=== PATIENT | female | born 1955 | race Hispanic/Latino ===

== ENCOUNTER 2019-10-18 19:12 | Emergency (ER) | payer MEDICAID ==
--- NOTE | 2019-10-18 20:01 | Emergency Department Report ---
HPI <NICOLAS BROUSSARD - Last Filed: 10/20/19 12:11> - HPI HPI: [place] 11 The patient is a 63-year-old female present with a chief complaint of aggressive behavior. The patient was reportedly at a personal senior care and called police because staff was not giving her her medication. Police states patient became aggressive with a roommate and was detained by police. The patient has a history of schizophrenia and bipolar disorder <ARYAN MORTENSEN Andressa - Last Filed: 10/20/19 21:59> - General Chief Complaint: Psych Time Seen by Provider: 10/18/19 19:42 ED Past Medical Hx <NICOLAS BROUSSARD - Last Filed: 10/20/19 12:11> - Past Medical History Previous Medical History?: Yes Hx Hypertension: Yes Hx Diabetes: Yes Hx Psychiatric Treatment: Yes (Bipolar, Schizophrenia) Additional medical history: DJD, needs hip replacement - Surgical History Past Surgical History?: No - Family History Family history: no significant - Social History Smoking Status: Current Every Day Smoker Substance Use Type: None <ARYAN MORTENSEN - Last Filed: 10/20/19 21:59> - Medications Home Medications: Home Medications Medication Instructions Recorded Confirmed Last Taken Type Acetaminophen [Tylenol] 650 mg PO Q6H PRN 10/19/19 10/19/19 Unknown History Cyclobenzaprine [Flexeril] 10 mg PO TID PRN 10/19/19 10/19/19 Unknown History DULoxetine [Cymbalta] 30 mg PO QDAY 10/19/19 10/19/19 Unknown History OLANZapine [Zyprexa] 7.5 mg PO BID 10/19/19 10/19/19 Unknown History Pregabalin [Lyrica] 50 mg PO TID 10/19/19 10/19/19 Unknown History Sennosides [Senna] 8.6 mg PO QDAY PRN 10/19/19 10/19/19 Unknown History Tramadol HCl/Acetaminophen 1 each PO Q6H PRN 10/19/19 10/19/19 Unknown History [Ultracet Tablet] amLODIPine [Norvasc] 10 mg PO DAILY 10/19/19 10/19/19 Unknown History metFORMIN [Glucophage] 500 mg PO BID 10/19/19 10/19/19 Unknown History ED Review of Systems ROS: Stated complaint: PSYCHIATRIC OUT BREAK Other details as noted in HPI <NICOLAS BROUSSARD Last Filed: 10/20/19 12:11> ROS: Stated complaint: PSYCHIATRIC OUT BREAK Other details as noted in HPI Constitutional: no symptoms reported Respiratory: no symptoms reported Endocrine: no symptoms reported Psychiatric: other (Aggressive behavior) <ÁNGEL MORTENSENMOKE Andressa - Last Filed: 10/20/19 21:59> Physical Exam - Physical Exam Vital Signs: Vital Signs 10/18/19 10/19/19 10/19/19 20:00 03:00 09:42 Temperature 97.9 F 97.9 F 97.8 F Pulse Rate 110 H 90 104 H Respiratory 20 20 16 Rate Blood Pressure 170/79 131/80 131/86 [Left] O2 Sat by Pulse 97 95 Oximetry 10/19/19 10/20/19 10/20/19 20:00 01:00 01:44 Temperature 98.0 F 97.6 F Pulse Rate 101 H 76 Respiratory 18 18 20 Rate Blood Pressure 148/79 136/78 [Left] O2 Sat by Pulse 96 98 Oximetry 10/20/19 08:03 Temperature 98.6 F Pulse Rate 113 H Respiratory 18 Rate Blood Pressure 149/84 [Left] O2 Sat by Pulse Oximetry <NICOLAS BROUSSARD Last Filed: 10/20/19 12:11> - Physical Exam Physical Exam: GENERAL: The patient is well-developed well-nourished female sitting in chair eating food not appearing to be in acute distress. [] HEENT: Normocephalic. Atraumatic. Extraocular motions are intact. Patient has moist mucous membranes. NECK: Supple. Trachea midline CHEST/LUNGS: There is no respiratory distress noted. HEART/CARDIOVASCULAR: Regular. There is no tachycardia. There is no gallop rub or murmur. ABDOMEN: Abdomen is soft, nontender. Patient has normal bowel sounds. There is no abdominal distention. SKIN: There is no rash. There is no edema. There is no diaphoresis. NEURO: The patient is awake, alert, and oriented. The patient is initially cooperative but during interview the patient states she does not wish to talk to me any longer. The patient has no focal neurologic deficits. The patient has normal speech MUSCULOSKELETAL: There is no evidence of acute injury. <ARYAN MORTENSEN Andressa - Last Filed: 10/20/19 21:59> ED Course Vital Signs 10/18/19 10/19/19 10/19/19 20:00 03:00 09:42 Temperature 97.9 F 97.9 F 97.8 F Pulse Rate 110 H 90 104 H Respiratory 20 20 16 Rate Blood Pressure 170/79 131/80 131/86 [Left] O2 Sat by Pulse 97 95 Oximetry 10/19/19 10/20/19 10/20/19 20:00 01:00 01:44 Temperature 98.0 F 97.6 F Pulse Rate 101 H 76 Respiratory 18 18 20 Rate Blood Pressure 148/79 136/78 [Left] O2 Sat by Pulse 96 98 Oximetry 10/20/19 08:03 Temperature 98.6 F Pulse Rate 113 H Respiratory 18 Rate Blood Pressure 149/84 [Left] O2 Sat by Pulse Oximetry - Reevaluation(s) Reevaluation #1: 10/20/19 12:06 The psychiatric team has recommended a 1013. I have ordered this on [facility]. it was already filled out by Dr Isaac Mortensen The patient is verbally aggressive, and has not responded to de-escalation techniques, or initial medications. As needed Ativan is ordered. [id number] evaluation performed. Patient is poorly mobile, and sitting in her room/stret [place]. She is moving her upper extremities and breathing spontaneously and protecting her airway. 10/20/19 12:11 <NICOLAS BROUSSARD - Last Filed: 10/20/19 12:11> ED Medical Decision Making - Lab Data Result diagrams: 10/18/19 19:57 10/18/19 19:57 <NICOLAS BROUSSARD - Last Filed: 10/20/19 12:11> - Lab Data Result diagrams: 10/20/19 15:31 10/18/19 19:57 - Differential Diagnosis Aggressive behavior <ARYAN MORTENSEN - Last Filed: 10/20/19 21:59> Critical care attestation.: If time is entered above; I have spent that time in minutes in the direct care of this critically ill patient, excluding procedure time. <NICOLAS BROUSSARD - Last Filed: 10/20/19 12:11> Critical care attestation.: If time is entered above; I have spent that time in minutes in the direct care of this critically ill patient, excluding procedure time. <ARYAN MORTENSEN - Last Filed: 10/20/19 21:59> ED Disposition <NICOLAS BROUSSARD - Last Filed: 10/20/19 12:11> Is pt being admited?: No Does the pt Need Aspirin: No <ARYAN MORTENSEN - Last Filed: 10/20/19 21:59> Clinical Impression: Aggressive behavior, UTI (urinary tract infection) Disposition: DC/[facility] HOSP/PSY UNIT Condition: Stable Referrals: PRIMARY CARE, [Primary Care Provider] - 3-5 Days
[2019-10-18 20:24] LABS: Basophils % (Auto) 0.2 % (0.0-1.8); Eosinophils # (Auto) 0.3 K/mm3 (0.0-0.4); Eosinophils % (Auto) 2.5 % (0.0-4.3); Hematocrit 37.7 % (30.3-42.9); Hemoglobin 12.3 gm/dl (10.1-14.3); Lymphocytes # (Auto) 3.2 K/mm3 (1.2-5.4); Lymphocytes % (Auto) 28.3 % (13.4-35.0); Mean Corpuscular HGB Conc 33 % (30-34); Mean Corpuscular Volume 79 fl (79-97); Monocytes % (Auto) 8.9 % (0.0-7.3); Platelet Count 422 K/mm3 (140-440); Red Blood Count 4.78 M/mm3 (3.65-5.03); Red Cell Distribution Width 15.3 % (13.2-15.2)
[2019-10-18] MEDS: HALOPERIDOL LACTATE 5 MG/1 ML INJ IM PRN (20:43)
[2019-10-18] MEDS: diphenhydrAMINE 50 MG/ML VIAL IM PRN (20:44)
[2019-10-18 20:46] LABS: Alanine Aminotransferase 49 units/L (7-56); Albumin 4.2 g/dL (3.9-5); Blood Urea Nitrogen 16 mg/dL (7-17); Calcium 10.2 mg/dL (8.4-10.2); Hemolysis Index 11
[2019-10-18 20:49] LABS: BUN/Creatinine Ratio 27
[2019-10-19 01:05] LABS: Bacteria,Urine 1+ /HPF (Negative); Bilirubin,Urine NEG (Negative); Blood,Urine SM (Negative); Color,Urine Yellow (Yellow); Mucus,Urine FEW /HPF; Protein,Urine <15 mg/dL mg/dL (Negative); Urobilinogen,Urine < 2.0 mg/dL (<2.0)
[2019-10-19 01:13] LABS: Amphetamine Screen,Urine PRESUMPTIVE NEGATIVE; Benzodiazepines Screen,Urine PRESUMPTIVE NEGATIVE; Cannabinoid Screen,Urine PRESUMPTIVE NEGATIVE; Cocaine Screen,Urine PRESUMPTIVE NEGATIVE; Methadone Screen,Urine PRESUMPTIVE NEGATIVE; Opiate Screen,Urine PRESUMPTIVE NEGATIVE
[2019-10-19] MEDS: diphenhydrAMINE 50 MG/ML VIAL IM PRN ×2 (08:06→16:15)
[2019-10-19] MEDS: HALOPERIDOL LACTATE 5 MG/1 ML INJ IM PRN ×2 (08:06→16:15)
[2019-10-19] MEDS: levoFLOXacin 500 MG TAB PO SCH (11:00)
[2019-10-19] MEDS: amLODIPine 10 MG TAB PO SCH (14:00)
[2019-10-19] MEDS: metFORMIN 500 MG TAB PO SCH (23:43)
[2019-10-20] MEDS ORDERED: ALUM-MAG HYDROXIDE-SIMETHICONE 200-200-20MG/5ML ORAL LIQD 30 ML PO PRN (08:06)
[2019-10-20] MEDS ORDERED: MAGNESIUM HYDROXIDE (MOM) ORAL LIQD UDC PO PRN (08:06)
[2019-10-20] MEDS: HALOPERIDOL LACTATE 5 MG/1 ML INJ IM PRN ×2 (08:37→16:29)
[2019-10-20] MEDS: ACETAMINOPHEN 325 MG TAB PO PRN (08:37)
[2019-10-20] MEDS: amLODIPine 10 MG TAB PO SCH (09:41)
[2019-10-20] MEDS: metFORMIN 500 MG TAB PO SCH ×2 (09:41→22:34)
[2019-10-20] MEDS: DULoxetine 30 MG CAP PO SCH (09:41)
[2019-10-20] MEDS: levoFLOXacin 500 MG TAB PO SCH (09:41)
[2019-10-20] MEDS: LORazepam 2 MG/ML VIAL IM PRN ×2 (12:28→16:14)
--- NOTE | 2019-10-20 13:38 | Consultation ---
History of Present Illness - Reason for Consult Consult date: 10/20/19 Reason for consult: aggression - History of Present Psychiatric Illness Roseline Vasquez is a 63y/o female patient for aggressive behavior. During my interview with the patient, she was heard yelling out of her room into the hallway. The patient is a/o x 3. She is obviously upset and appears anxious. The patient states "of course I'm angry, I got bone on bone, arthritis, a debilitated hip." She then says, "and nobody's doing nothing about it." The patient says, "I'm just in so much pain." She says she has a history of "bipolar and depression." The patient denies SI/HI or having a history of. She says she has been admitted for psych related conditions "several times." The patient says her "psych history goes back to 1974." She says she's "been on several meds since then, including zyprexa, haldol, cymbalta, lyrica and klonopin." The patient denies hallucinations and states, "no, I don't and never have hallucinated." She denies alcohol or illicit drug use. She says she smokes cigarets a "half a pack a day." PAST PSYCHIATRIC HISTORY: Diagnoses: Bipolar and depression Suicide attempts or Self-harm behavior: Denies Prior psychiatric hospitalizations: "several times" Substance Abuse history: Nicotine Previous psychiatric medications tried: zyprexa, haldol, cymbalta, klonopin, lyrica Outpatient treatment: Yes PAST MEDICAL HISTORY: None reported Family Psychiatric History: None reported or documented SOCIAL HISTORY Marital Status: Living Arrangements: [facility] Employment Status: Disabled Access to guns/weapons: Denies Education: 10th grade History of Abuse: Denies Legal History: Denies REVIEW OF SYSTEMS Constitutional: Negative for weight loss ENT: Negative for stridor Respiratory: Negative for cough or hemoptysis All other systems reviewed and are negative MENTAL STATUS EXAMINATION General Appearance: Dressed appropriately Behavior: Upset, anxious Mood: "angry" Affect and affective range: Angry Thought Process: Goal directed Speech: increased rate and tone, yelling at times Thought Content: Suicidal Ideation: Denies SI Homicidal Ideation: Denies Hallucinations: Denies Delusions: Denies Insight and Judgment: Limited Memory/Cognition: Limited Attention: Normal ASSESSMENT Bipolar Disorder, Current Episode Manic RECOMMENDATIONS Increase home olanzapine to 10mg po BID Start Depakote DR 125mg po BID Start Klonopin 0.25mg po BID Start Trazodone 50mg po qhs Sitter: Defer to primary Medical: per primary Disposition: Recommend acute inpatient psychiatric treatment once medically clear Will continue to follow Thank you for this consult. Please call with any questions or concerns. Medications and Allergies Allergies Allergy/AdvReac Type Severity Reaction Status Date / Time Penicillins Allergy Unknown Verified 10/18/19 20:18 Home Medications Medication Instructions Recorded Confirmed Last Taken Type Acetaminophen [Tylenol] 650 mg PO Q6H PRN 10/19/19 10/19/19 Unknown History Cyclobenzaprine [Flexeril] 10 mg PO TID PRN 10/19/19 10/19/19 Unknown History DULoxetine [Cymbalta] 30 mg PO QDAY 10/19/19 10/19/19 Unknown History OLANZapine [Zyprexa] 7.5 mg PO BID 10/19/19 10/19/19 Unknown History Pregabalin [Lyrica] 50 mg PO TID 10/19/19 10/19/19 Unknown History Sennosides [Senna] 8.6 mg PO QDAY PRN 10/19/19 10/19/19 Unknown History Tramadol HCl/Acetaminophen 1 each PO Q6H PRN 10/19/19 10/19/19 Unknown History [Ultracet Tablet] amLODIPine [Norvasc] 10 mg PO DAILY 10/19/19 10/19/19 Unknown History metFORMIN [Glucophage] 500 mg PO BID 10/19/19 10/19/19 Unknown History Active Meds: Active Medications Acetaminophen (Tylenol) 650 mg PO Q4HR PRN PRN Reason: Pain MILD(1-3)/Fever >100.5/PANDA Last Admin: 10/20/19 08:37 Dose: 650 mg Documented by: Al Hydrox/Mg Hydrox/Simethicone (Alum-Mag Hydrox-Simeth [phone]/5ml) 30 ml PO Q4HR PRN PRN Reason: Indigestion Amlodipine Besylate (Amlodipine) 10 mg PO DAILY ABRAHAM Last Admin: 10/20/19 09:41 Dose: 10 mg Documented by: Diphenhydramine HCl (Benadryl) 50 mg IM Q6H PRN PRN Reason: Agitation Last Admin: 10/19/19 16:15 Dose: 50 mg Documented by: Duloxetine HCl (Cymbalta) 30 mg PO QDAY [facility] Last Admin: 10/20/19 09:41 Dose: 30 mg Documented by: Haloperidol Lactate (Haldol) 10 mg IM Q8H PRN PRN Reason: Agitation Last Admin: 10/20/19 08:37 Dose: 10 mg Documented by: Levofloxacin (Levaquin) 500 mg PO QDAY [facility] Stop: 10/22/19 10:00 Last Admin: 10/20/19 09:41 Dose: 500 mg Documented by: Lorazepam (Ativan) 2 mg IM Q4HR PRN PRN Reason: Agitation Last Admin: 10/20/19 12:28 Dose: 2 mg Documented by: Magnesium Hydroxide (Milk Of Magnesia) 30 ml PO Q12HR PRN PRN Reason: Constipation Metformin HCl (Glucophage) 500 mg PO BID [facility] Last Admin: 10/20/19 09:41 Dose: 500 mg Documented by: Olanzapine (Zyprexa) 7.5 mg PO BID [facility] Last Admin: 10/20/19 09:41 Dose: 7.5 mg Documented by: Mental Status Exam - Vital signs Last Vital Signs Temp 98.6 F 10/20/19 08:03 Pulse 113 H 10/20/19 08:03 Resp 18 10/20/19 08:03 BP 149/84 10/20/19 08:03 Pulse Ox 98 10/20/19 01:44 Results Result Diagrams: 10/18/19 19:57 10/18/19 19:57 Abnormal lab results 10/20/19 Range/Units 07:58 POC Glucose 181 H (70-105) All other labs normal.
[2019-10-20] MEDS: DIVALPROEX DR 125 MG TAB PO SCH ×2 (14:49→22:35)
[2019-10-20] MEDS: clonazePAM 0.5 MG TAB PO SCH ×2 (14:49→22:34)
[2019-10-20 15:58] LABS: Hematocrit 41.2 % (30.3-42.9); Hemoglobin 13.3 gm/dl (10.1-14.3); Mean Corpuscular HGB Conc 32 % (30-34); Mean Corpuscular Volume 79 fl (79-97); Platelet Count 433 K/mm3 (140-440); Red Blood Count 5.25 M/mm3 (3.65-5.03); Red Cell Distribution Width 15.5 % (13.2-15.2)
[2019-10-20] MEDS: traZODone 50 MG TAB PO SCH (22:35)
[2019-10-21] MEDS: HALOPERIDOL LACTATE 5 MG/1 ML INJ IM PRN ×2 (02:30→14:00)
[2019-10-21] MEDS: diphenhydrAMINE 50 MG/ML VIAL IM PRN ×2 (02:30→14:00)
[2019-10-21] MEDS: clonazePAM 0.5 MG TAB PO SCH ×2 (10:47→21:41)
[2019-10-21] MEDS: DULoxetine 30 MG CAP PO SCH (10:48)
[2019-10-21] MEDS: levoFLOXacin 500 MG TAB PO SCH (10:48)
[2019-10-21] MEDS: amLODIPine 10 MG TAB PO SCH (10:48)
[2019-10-21] MEDS: DIVALPROEX DR 125 MG TAB PO SCH (10:48)
[2019-10-21] MEDS: metFORMIN 500 MG TAB PO SCH ×2 (10:48→21:40)
--- NOTE | 2019-10-21 11:34 | Progress Note ---
Subjective - Reason for Consult Consult date: 10/21/19 Reason for consult: agitation, aggression - Chief Complaint Chief complaint: The patient's medical record was reviewed and the patient's progress was discussed with the nursing staff. The nurse note states the patient hollering and screaming out beating her hand on the wall by her bed. Reoriented to environment and patient screaming that were not giving her medications right and that she needs Percocet and Vicodin for her pain. During my interview with the patient today, she is lying down, awake. She is a/o x 3. She is irritable and agitated. Her face is tense and scrunched up. She is heard yelling from the hallway. She is c/o of "pelvic pain that goes to my back." The patient also verbalizes being "very anxious and upset" and states she "needs my klonopin." She denies hallucinations and SI/HI. REVIEW OF SYSTEMS Constitutional: Negative for weight loss ENT: Negative for stridor Respiratory: Negative for cough or hemoptysis All other systems reviewed and are negative MENTAL STATUS EXAMINATION General Appearance: Dressed appropriately Behavior: agitated, anxious, yelling Mood: "anxious and upset" Affect and affective range: tense, angry Thought Process: Goal directed Speech: increased rate and tone, yelling at times Thought Content: Suicidal Ideation: Denies SI Homicidal Ideation: Denies Hallucinations: Denies Delusions: Denies Insight and Judgment: Limited Memory/Cognition: Limited Attention: Normal ASSESSMENT Bipolar Disorder, Current Episode Manic RECOMMENDATIONS Increased Depakote DR 250mg po BID Increased Klonopin 0.5mg po BID Sitter: Defer to primary Medical: per primary Disposition: Recommend acute inpatient psychiatric treatment once medically clear Will continue to follow Thank you for this consult. Please call with any questions or concerns. Mental Status Exam - Vital signs Last Vital Signs Temp 98.6 F 10/21/19 02:05 Pulse 96 H 10/21/19 02:05 Resp 10/21/19 02:05 BP 148/81 10/21/19 02:05 Pulse Ox 100 10/21/19 02:05
[2019-10-21] MEDS: LORazepam 2 MG/ML VIAL IM PRN (14:30)
[2019-10-21] MEDS: ACETAMINOPHEN 325 MG TAB PO PRN (18:34)
[2019-10-21] MEDS: DIVALPROEX DR 250 MG TAB PO SCH (21:40)
[2019-10-21] MEDS: traZODone 50 MG TAB PO SCH (21:40)
[2019-10-22] MEDS: HALOPERIDOL LACTATE 5 MG/1 ML INJ IM PRN ×3 (02:11→18:27)
[2019-10-22] MEDS: LORazepam 2 MG/ML VIAL IM PRN ×3 (02:11→18:27)
[2019-10-22] MEDS: diphenhydrAMINE 50 MG/ML VIAL IM PRN ×3 (02:11→18:27)
[2019-10-22] MEDS: ACETAMINOPHEN 325 MG TAB PO PRN ×2 (07:20→15:19)
[2019-10-22] MEDS: metFORMIN 500 MG TAB PO SCH ×2 (10:07→21:48)
[2019-10-22] MEDS: DIVALPROEX DR 250 MG TAB PO SCH ×2 (10:07→21:47)
[2019-10-22] MEDS: amLODIPine 10 MG TAB PO SCH (10:07)
[2019-10-22] MEDS: levoFLOXacin 500 MG TAB PO SCH (10:07)
[2019-10-22] MEDS: clonazePAM 0.5 MG TAB PO SCH ×2 (10:07→21:48)
[2019-10-22] MEDS: DULoxetine 30 MG CAP PO SCH (10:07)
--- NOTE | 2019-10-22 11:20 | Progress Note ---
Subjective - Reason for Consult Consult date: 10/22/19 Reason for consult: agitation, irritability - Chief Complaint Chief complaint: The patient's medical record was reviewed and the patient's progress was discussed with the nursing staff. The nurse caring for the patient today, states the patient has been screaming and yelling all morning. During my interview with the patient today, she is lying down. She is resting quietly. The patient easily arouses. She is oriented x 3. She makes good eye contact. She is irritable and easily agitated. The patient states to me "I'm not good. I'm hurting badly." She says "that's my problem with laying here like this." The patient asked, "am I going back home?" When advising the patient that she had been too agitated. She replied "I'm not a mean person. I just got a hot temper. Me just laying here makes it worse." Informed the patient that she had to be calm and stop being so aggressive. The patient then states, "oh, okay. I can do that. I'll be calm." She denies SI/HI or hallucinations of any kind. REVIEW OF SYSTEMS Constitutional: Negative for weight loss ENT: Negative for stridor Respiratory: Negative for cough or hemoptysis All other systems reviewed and are negative MENTAL STATUS EXAMINATION General Appearance: Dressed appropriately Behavior: irritable, agitated cooperative Mood: "not good" Affect and affective range: tense Thought Process: Goal directed Speech: increased rate and tone Thought Content: Suicidal Ideation: Denies SI Homicidal Ideation: Denies Hallucinations: Denies Delusions: Denies Insight and Judgment: Limited Memory/Cognition: Limited Attention: Normal ASSESSMENT Bipolar Disorder, Current Episode Manic RECOMMENDATIONS Increased Klonopin 1mg po BID Sitter: Defer to primary Medical: per primary Disposition: Recommend acute inpatient psychiatric treatment once medically clear Will continue to follow Thank you for this consult. Please call with any questions or concerns. Mental Status Exam - Vital signs Last Vital Signs Temp 97.6 F 10/22/19 08:26 Pulse 106 H 10/22/19 08:26 Resp 18 10/22/19 08:26 BP 117/78 10/22/19 08:26 Pulse Ox 99 10/22/19 02:05
[2019-10-22] MEDS: traMADol 50 MG TAB PO SCH (16:16)
[2019-10-22] MEDS: traZODone 50 MG TAB PO SCH (21:48)
[2019-10-23] MEDS: ACETAMINOPHEN 325 MG TAB PO PRN ×2 (05:08→18:39)
[2019-10-23] MEDS ORDERED: traMADol 50 MG TAB PO ONE (06:24)
--- NOTE | 2019-10-23 10:23 | Progress Note ---
Subjective - Reason for Consult Consult date: 10/23/19 Reason for consult: Aggression, agitation - Chief Complaint Chief complaint: The patient's medical record was reviewed and the patient's progress was discussed with the nursing staff. The nurse caring for the patient today, Received pt in the room, yelling and screaming for a remote and asking for a milk, gave pt what she needs and asked if she can just tell what she wants without yelling or screaming. The nurse note also states the patient continues to call staffs name and yell into the [place]. The patient is hitting the wall and spitting on the floor. During my interview with the patient today, she is lying down. Awake. She is a/o x 3. The patient appears irritated, but she calms down as we continue to talk. Her face is tense. She states, "I am not good and yall need to let me out of here." The patient tells me she "can pay a cab with the $20 she has." She says she's "in a lot of pain and that's what makes me agitated like I am." She states she's "ready to go back to her personal custodial with my sweet little roommate." Advised the patient that she first had to calm down and stop being so easily agitated. She laughed and stated, "well when is that going to happen." The patient denies hallucinations of any kind. She also denies SI/HI REVIEW OF SYSTEMS Constitutional: Negative for weight loss ENT: Negative for stridor Respiratory: Negative for cough or hemoptysis All other systems reviewed and are negative MENTAL STATUS EXAMINATION General Appearance: Dressed appropriately Behavior: irritable, easily agitated, cooperative Mood: "not good" Affect and affective range: tense Thought Process: Goal directed Speech: increased rate and tone Thought Content: Suicidal Ideation: Denies SI Homicidal Ideation: Denies Hallucinations: Denies Delusions: Denies Insight and Judgment: Limited Memory/Cognition: Limited Attention: Normal ASSESSMENT Bipolar Disorder, Current Episode Manic RECOMMENDATIONS Increased Depakote DR 500mg po BID Sitter: Defer to primary Medical: per primary Disposition: Recommend acute inpatient psychiatric treatment once medically cl ear Will continue to follow Thank you for this consult. Please call with any questions or concerns. Mental Status Exam - Vital signs Last Vital Signs Temp 98.2 F 10/23/19 10:07 Pulse 99 H 10/23/19 10:07 Resp 20 10/23/19 10:07 BP 151/84 10/23/19 10:07 Pulse Ox 95 10/23/19 04:01
[2019-10-23] MEDS ORDERED: IBUPROFEN 600 MG TAB PO ONE (10:46)
[2019-10-23] MEDS: clonazePAM 0.5 MG TAB PO SCH ×2 (10:47→22:55)
[2019-10-23] MEDS: DULoxetine 30 MG CAP PO SCH (10:47)
[2019-10-23] MEDS: metFORMIN 500 MG TAB PO SCH ×2 (10:48→22:55)
[2019-10-23] MEDS: amLODIPine 10 MG TAB PO SCH (10:49)
[2019-10-23] MEDS: DIVALPROEX DR 250 MG TAB PO SCH (10:52)
[2019-10-23] MEDS ORDERED: IBUPROFEN 800 MG TAB PO ONE (10:53)
[2019-10-23] MEDS: diphenhydrAMINE 50 MG/ML VIAL IM PRN (17:40)
[2019-10-23] MEDS: HALOPERIDOL LACTATE 5 MG/1 ML INJ IM PRN (17:41)
[2019-10-23] MEDS: traZODone 50 MG TAB PO SCH (22:50)
[2019-10-23] MEDS: DIVALPROEX DR 500 MG TAB PO SCH (22:55)
[2019-10-24] MEDS: LORazepam 2 MG/ML VIAL IM PRN ×2 (08:24→17:07)
[2019-10-24] MEDS: HALOPERIDOL LACTATE 5 MG/1 ML INJ IM PRN ×2 (08:25→17:09)
[2019-10-24] MEDS: DULoxetine 30 MG CAP PO SCH (10:21)
[2019-10-24] MEDS: amLODIPine 10 MG TAB PO SCH (10:21)
[2019-10-24] MEDS: DIVALPROEX DR 500 MG TAB PO SCH ×2 (10:22→22:41)
[2019-10-24] MEDS: clonazePAM 0.5 MG TAB PO SCH ×2 (10:22→22:42)
[2019-10-24] MEDS: metFORMIN 500 MG TAB PO SCH ×2 (10:22→22:42)
--- NOTE | 2019-10-24 13:46 | Progress Note ---
Subjective - Reason for Consult Consult date: 10/24/19 Reason for consult: MHE Requesting physician: ARYAN JANE - Chief Complaint Chief complaint: Psych Progress Patient seen today in room, somnolence but alert to loud verbal stimuli. Was recently medicated due to agitation. Patient states she knows where she is, complains of generalized aches and wants pain medicine stronger than tylenol. REVIEW OF SYSTEMS Constitutional: Negative for weight loss ENT: Negative for stridor Respiratory: Negative for cough or hemoptysis All other systems reviewed and are negative MENTAL STATUS EXAMINATION General Appearance: Dressed appropriately Behavior: irritable, easily agitated, cooperative Mood: "not good" Affect and affective range: tense Thought Process: Goal directed Speech: increased rate and tone Thought Content: Suicidal Ideation: Denies SI Homicidal Ideation: Denies Hallucinations: Denies Delusions: Denies Insight and Judgment: Limited Memory/Cognition: Limited Attention: Normal ASSESSMENT Bipolar Disorder, Current Episode Manic RECOMMENDATIONS Increased Depakote DR 500mg po BID Sitter: Defer to primary Medical: per primary Disposition: Recommend acute inpatient psychiatric treatment once medically clear Will continue to follow Thank you for this consult. Please call with any questions or concerns. Mental Status Exam - Vital signs Last Vital Signs Temp 97.6 F 10/24/19 08:00 Pulse 88 10/24/19 10:21 Resp 22 10/24/19 08:00 BP 142/100 10/24/19 10:21 Pulse Ox 95 10/24/19 08:00
[2019-10-24] MEDS: traMADol 50 MG TAB PO SCH (17:08)
[2019-10-24] MEDS: ACETAMINOPHEN 325 MG TAB PO PRN (17:08)
[2019-10-24] MEDS: diphenhydrAMINE 50 MG/ML VIAL IM PRN (17:09)
[2019-10-24] MEDS: traZODone 50 MG TAB PO SCH (22:41)
[2019-10-25] MEDS: LORazepam 2 MG/ML VIAL IM PRN (04:41)
[2019-10-25] MEDS: diphenhydrAMINE 50 MG/ML VIAL IM PRN (04:42)
[2019-10-25] MEDS: HALOPERIDOL LACTATE 5 MG/1 ML INJ IM PRN ×2 (04:43→13:37)
[2019-10-25] MEDS ORDERED: ZIPRASIDONE MESYLATE 20 MG VIAL IM ONE ×2 (05:45→05:51)
[2019-10-25] MEDS ORDERED: WATER FOR INJ Sterile (PF) 10 ML ONE (05:51)
--- NOTE | 2019-10-25 11:49 | Progress Note ---
Subjective - Reason for Consult Consult date: 10/25/19 Reason for consult: MHE Requesting physician: ARYAN JANE - Chief Complaint Chief complaint: Psych Progress Patient seen today in room, loud, talkative and increased impulsiveness and seeking attention REVIEW OF SYSTEMS Constitutional: Negative for weight loss ENT: Negative for stridor Respiratory: Negative for cough or hemoptysis All other systems reviewed and are negative MENTAL STATUS EXAMINATION General Appearance: Dressed appropriately Behavior: irritable, easily agitated, cooperative Mood: "not good" Affect and affective range: tense Thought Process: Goal directed Speech: increased rate and tone Thought Content: Suicidal Ideation: Denies SI Homicidal Ideation: Denies Hallucinations: Denies Delusions: Denies Insight and Judgment: Limited Memory/Cognition: Limited Attention: Normal ASSESSMENT Bipolar Disorder, Current Episode Manic RECOMMENDATIONS Increased Depakote DR 500mg po BID Sitter: Defer to primary Medical: per primary Disposition: Recommend acute inpatient psychiatric treatment once medically clear Will continue to follow Thank you for this consult. Please call with any questions or concerns. Mental Status Exam - Vital signs Last Vital Signs Temp 97.6 F 10/25/19 08:38 Pulse 90 10/25/19 08:38 Resp 18 10/25/19 08:38 BP 168/88 10/25/19 08:38 Pulse Ox 100 10/25/19 08:38
[2019-10-25] MEDS: DIVALPROEX DR 500 MG TAB PO SCH ×2 (11:50→22:49)
[2019-10-25] MEDS: DULoxetine 30 MG CAP PO SCH (11:51)
[2019-10-25] MEDS: amLODIPine 10 MG TAB PO SCH (11:51)
[2019-10-25] MEDS: metFORMIN 500 MG TAB PO SCH ×2 (11:52→22:50)
[2019-10-25] MEDS: clonazePAM 0.5 MG TAB PO SCH ×2 (11:55→22:49)
[2019-10-25] MEDS: traZODone 50 MG TAB PO SCH (22:49)
[2019-10-26] MEDS: traMADol 50 MG TAB PO SCH ×2 (02:59→19:49)
[2019-10-26] MEDS: ACETAMINOPHEN 325 MG TAB PO PRN (08:00)
[2019-10-26] MEDS: HALOPERIDOL LACTATE 5 MG/1 ML INJ IM PRN ×2 (10:25→20:19)
[2019-10-26] MEDS: clonazePAM 0.5 MG TAB PO SCH (10:59)
[2019-10-26] MEDS: DULoxetine 30 MG CAP PO SCH (10:59)
[2019-10-26] MEDS: amLODIPine 10 MG TAB PO SCH (11:00)
[2019-10-26] MEDS: DIVALPROEX DR 500 MG TAB PO SCH ×2 (11:00→22:11)
[2019-10-26] MEDS: metFORMIN 500 MG TAB PO SCH ×2 (11:00→22:10)
--- NOTE | 2019-10-26 12:16 | Progress Note ---
Subjective - Reason for Consult Consult date: 10/26/19 Reason for consult: MHE Requesting physician: JUDITH BREWER - Chief Complaint Chief complaint: Psych Progress Patient seen today in room, says she is having pain in her hips for arthritis and wants something for pain, nurse notified of complains. Patient states she is not crazy and wants to know when she can go home, aware she is in the hospital for mental health issues and has been taking her meds as prescribed. REVIEW OF SYSTEMS Constitutional: Negative for weight loss ENT: Negative for stridor Respiratory: Negative for cough or hemoptysis All other systems reviewed and are negative MENTAL STATUS EXAMINATION General Appearance: Dressed appropriately Behavior:, engaged, cooperative Mood: im good besides pain Affect and affective range: congruent with mood Thought Process: Goal directed Speech: increased rate and tone Thought Content: Suicidal Ideation: Denies SI Homicidal Ideation: Denies Hallucinations: Denies Delusions: Denies Insight and Judgment: Limited Memory/Cognition: Limited Attention: Normal ASSESSMENT Bipolar Disorder RECOMMENDATIONS Increased Depakote DR 500mg po BID Sitter: Defer to primary Medical: per primary Disposition: Outpt psych F/U with current medications. Case management for psychosocial rehabilitation counselor. Will sign off. Thank you for this consult. Please call with any questions or concerns. Mental Status Exam - Vital signs Last Vital Signs Temp 98.0 F 10/26/19 07:39 Pulse 70 10/26/19 07:39 Resp 20 10/26/19 07:39 BP 147/88 10/26/19 07:39 Pulse Ox 100 10/26/19 07:39
[2019-10-26] MEDS: risperiDONE 0.25 MG TAB PO SCH (22:08)
[2019-10-26] MEDS: traZODone 50 MG TAB PO SCH (22:10)
[2019-10-27] MEDS: ACETAMINOPHEN 325 MG TAB PO PRN ×2 (01:01→09:07)
[2019-10-27] MEDS: LORazepam 2 MG/ML VIAL IM PRN ×2 (01:05→20:46)
[2019-10-27] MEDS: diphenhydrAMINE 50 MG/ML VIAL IM PRN ×2 (01:05→20:46)
[2019-10-27] MEDS: DULoxetine 30 MG CAP PO SCH (11:07)
[2019-10-27] MEDS: DIVALPROEX DR 500 MG TAB PO SCH ×2 (11:07→22:49)
[2019-10-27] MEDS: amLODIPine 10 MG TAB PO SCH (11:08)
[2019-10-27] MEDS: risperiDONE 0.25 MG TAB PO SCH ×2 (11:08→22:50)
[2019-10-27] MEDS: metFORMIN 500 MG TAB PO SCH ×2 (11:08→22:50)
[2019-10-27] MEDS: traMADol 50 MG TAB PO SCH ×2 (14:22→21:15)
[2019-10-27] MEDS: traZODone 50 MG TAB PO SCH (22:50)
[2019-10-27] MEDS: HALOPERIDOL LACTATE 5 MG/1 ML INJ IM PRN (22:53)
[2019-10-28] MEDS: ACETAMINOPHEN 325 MG TAB PO PRN (08:10)
[2019-10-28] MEDS: metFORMIN 500 MG TAB PO SCH ×2 (10:53→21:44)
[2019-10-28] MEDS: risperiDONE 0.25 MG TAB PO SCH ×2 (10:53→21:40)
[2019-10-28] MEDS: DIVALPROEX DR 500 MG TAB PO SCH ×2 (10:53→21:40)
[2019-10-28] MEDS: DULoxetine 30 MG CAP PO SCH (10:53)
[2019-10-28] MEDS: amLODIPine 10 MG TAB PO SCH (10:54)
[2019-10-28] MEDS: traMADol 50 MG TAB PO SCH (14:18)
--- NOTE | 2019-10-28 19:22 | XRay Report ---
CHEST 1 VIEW INDICATION / CLINICAL INFORMATION: r/o TB. COMPARISON: None available. FINDINGS: SUPPORT DEVICES: None. HEART / MEDIASTINUM: No significant abnormality. LUNGS / PLEURA: No significant pulmonary or pleural abnormality. No pneumothorax. ADDITIONAL FINDINGS: No significant additional findings. IMPRESSION: No acute pulmonary or pleural abnormality. No radiographic evidence of active tuberculosis Signer Name: Lamine Harris MD FACR Signed: 10/28/2019 7:18 PM Workstation Name: [id number]
[2019-10-28] MEDS: traZODone 50 MG TAB PO SCH (21:40)
[2019-10-28] MEDS: diphenhydrAMINE 50 MG/ML VIAL IM PRN (21:44)
[2019-10-28] MEDS: HALOPERIDOL LACTATE 5 MG/1 ML INJ IM PRN (21:50)
[2019-10-28] MEDS: LORazepam 2 MG/ML VIAL IM PRN (21:51)
[2019-10-29] MEDS: traMADol 50 MG TAB PO SCH ×2 (03:26→22:59)
[2019-10-29] MEDS: DULoxetine 30 MG CAP PO SCH (10:08)
[2019-10-29] MEDS: DIVALPROEX DR 500 MG TAB PO SCH ×2 (10:08→21:47)
[2019-10-29] MEDS: metFORMIN 500 MG TAB PO SCH ×2 (10:08→21:48)
[2019-10-29] MEDS: risperiDONE 0.25 MG TAB PO SCH ×2 (10:08→21:47)
[2019-10-29] MEDS: amLODIPine 10 MG TAB PO SCH (10:09)
[2019-10-29] MEDS: ACETAMINOPHEN 325 MG TAB PO PRN ×2 (12:41→18:15)
--- NOTE | 2019-10-29 15:25 | Cat Scan Report ---
CT HEAD WITHOUT CONTRAST INDICATION / CLINICAL INFORMATION: Trauma with head injury. TECHNIQUE: All CT scans at this location are performed using CT dose reduction for ALARA by means of automated e xposure control. COMPARISON: None available. FINDINGS: HEMORRHAGE: No evidence of intracranial hemorrhage or extra-axial fluid collection. EXTRA-AXIAL SPACES: Cortical sulci, sylvian fissures and basilar cisterns have an unremarkable appear ance. VENTRICULAR SYSTEM: The ventricular system is of normal size and configuration. CEREBRAL PARENCHYMA: No areas of abnormal brain parenchymal attenuation are identified. There is no i ndication of recent infarction. MIDLINE SHIFT OR HERNIATION: There is no mass effect. CEREBELLUM / BRAINSTEM: Brainstem and cerebellum have an unremarkable appearance. MIDLINE STRUCTURES:No abnormalities of the pituitary gland or pineal region are identified. INTRACRANIAL VESSELS: Calcified atherosclerotic plaque is seen along the course of the cavernous segm ents of both internal carotid arteries. ORBITS: visualized portions of the orbits have an unremarkable appearance. SOFT TISSUES of HEAD: No significant abnormality. CALVARIUM: Evaluation of bone windows reveals no abnormalities. Incidental note is made of persistenc e of the metopic suture. PARANASAL SINUSES / MASTOID AIR CELLS: Frontal sinuses did not develop in this individual. Paranasal sinuses are free from inflammatory mucosal disease. Mastoid air cells are normally pneumatized. IMPRESSION: 1. No significant intracranial abnormality on head CT without contrast.. Signer Name: Ayad Guillen MD Signed: 10/29/2019 3:21 PM Workstation Name: [id number]
[2019-10-29] MEDS: traZODone 50 MG TAB PO SCH (21:45)
[2019-10-30] MEDS: diphenhydrAMINE 50 MG/ML VIAL IM PRN (04:32)
[2019-10-30] MEDS: LORazepam 2 MG/ML VIAL IM PRN (04:32)
[2019-10-30 08:17] VITALS: BP 120/74
[2019-10-30] MEDS: DIVALPROEX DR 500 MG TAB PO SCH (10:46)
[2019-10-30] MEDS: DULoxetine 30 MG CAP PO SCH (10:46)
[2019-10-30] MEDS: metFORMIN 500 MG TAB PO SCH (10:47)
[2019-10-30] MEDS: ACETAMINOPHEN 325 MG TAB PO PRN (10:47)
[2019-10-30] MEDS: amLODIPine 10 MG TAB PO SCH (10:48)
[2019-10-30] MEDS: risperiDONE 0.25 MG TAB PO SCH (10:48)
== END 2019-10-30 16:39 ==
LOC: ED 19:12 → EEVIPCON 19:12 → ED 10-30 16:39
DX: N39.0 Urinary tract infection, site not specified (principal); R46.89 Other symptoms and signs involving appearance and behavior; E11.9 Type 2 diabetes mellitus without complications; I10 Essential (primary) hypertension; Z79.899 Other long term (current) drug therapy; Z88.0 Allergy status to penicillin
CPT/HCPCS: 36415; 70450; 71045; 80053; 80307; 81001; 82962; 85025; 85027; 87086; 96372; 99285; J1200; J1630; J2060; J3486; 80320; G0480